=== PATIENT | male | born 1970 | race African-American/Black ===

== ENCOUNTER 2018-06-07 08:39 | Emergency (ER) | payer SELFPAY ==
--- NOTE | 2018-06-07 09:45 | CR ---
Chest: PA view of the chest was obtained. Comparison: No prior chest x-ray. Heart size and mediastinum are normal. Lungs are clear. Bony structures are grossly intact. Impression: 1. Nothing acute is seen on PA chest x-ray. Diagnostic code #1
--- NOTE | 2018-06-07 09:45 | CR ---
Left hand: Three views of the left hand were obtained. Joint spaces are maintained within the hand. No fracture, dislocation or other bony abnormality is seen. Impression: 1. No abnormality is seen on left hand exam. Diagnostic code #1
--- NOTE | 2018-06-07 09:47 | EDM.PDOC ---
ED HPI GENERAL MEDICAL PROBLEM - General Chief Complaint: Chest Pain Stated Complaint: CHEST PAIN Time Seen by Provider: 06/07/18 08:51 Source of Information: Reports: Patient History Limitations: Reports: No Limitations - History of Present Illness INITIAL COMMENTS - FREE TEXT/NARRATIVE: The patient is a 48-year-old male with no past medical history who comes in for episodes of chest pain and also difficulty moving his left thumb. Patient states that he's been getting intermittent chest pain over the past 2 weeks. There is no provoking factor. He gets about one episode daily. The pain is located in the center of his chest and it just lasts a few seconds and then resolves. It is not severe. Pain is dull. No radiation. He does not have any associated shortness of breath or nausea. Pain is not provoked by exertion. It is not provoked by food. No lower extremity pain or swelling. No cough, fever, or recent illness. Additionally, patient notes that he is having trouble flexing his left thumb. He does not recall an injury. This has been going on for a month. He has not previously sought medical attention. He also has pain at the base of the thumb. Chest Pain Score (Numeric/FACES): 6 - Related Data Allergies Allergy/AdvReac Type Severity Reaction Status Date / Time No Known Allergies Allergy Verified 06/07/18 08:47 Home Meds: Home Meds . [No Known Home Meds] 06/07/18 [History] Past Medical History - Past Health History Medical/Surgical History: Denies Medical/Surgical History Respiratory History: Reports: PE Social & Family History - Tobacco Use Smoking Status *Q: Never Smoker Second Hand Smoke Exposure: No - Caffeine Use Caffeine Use: Reports: Soda - Recreational Drug Use Recreational Drug Use: No ED ROS GENERAL - Review of Systems Review Of Systems: See Below Constitutional: Denies: Fever HEENT: Reports: No Symptoms Respiratory: Reports: No Symptoms Cardiovascular: Reports: Chest Pain Endocrine: Reports: No Symptoms GI/Abdominal: Reports: No Symptoms : Reports: No Symptoms Musculoskeletal: Reports: Hand Pain Skin: Reports: No Symptoms Neurological: Denies: Paresthesia Psychiatric: Reports: No Symptoms Hematologic/Lymphatic: Reports: No Symptoms Immunologic: Reports: No Symptoms ED EXAM, GENERAL - Physical Exam Exam: See Below Exam Limited By: No Limitations General Appearance: Alert, WD/WN, No Apparent Distress Eye Exam: Bilateral Eye: Normal Inspection Ears: Normal External Exam Nose: Normal Inspection Throat/Mouth: Normal Inspection, Normal Oropharynx, Normal Voice Head: Atraumatic, Normocephalic Neck: Normal Inspection, Supple, Non-Tender, Full Range of Motion Respiratory/Chest: No Respiratory Distress, Lungs Clear, Normal Breath Sounds, No Accessory Muscle Use, Chest Non-Tender Cardiovascular: Normal Peripheral Pulses, Regular Rate, Rhythm, No Edema, No Murmur Peripheral Pulses: 2+: Radial (R) GI/Abdominal: Normal Bowel Sounds, Soft, Non-Tender. No: Rebound Back Exam: Normal Inspection Extremities: Normal Inspection. No: No Pedal Edema, Leg Pain Neurological: Alert, Oriented, Normal Cognition, No Motor/Sensory Deficits Psychiatric: Normal Affect, Normal Mood Skin Exam: Warm, Dry, Intact, Normal Color, No Rash Course - Vital Signs Last Recorded V/S: Last Vital Signs Temp 36.2 C 06/07/18 08:47 Pulse 94 06/07/18 08:47 Resp 12 06/07/18 08:47 BP 145/94 H 06/07/18 08:47 Pulse Ox 100 06/07/18 08:47 - Orders/Labs/Meds Orders: Active Orders 24 hr Category Date Time Status EKG 12 Lead [EKG Documentation Completion] [RC] STAT Care 06/07/18 08:49 Active Chest 1V Frontal [CR] Stat Exams 06/07/18 09:02 Taken Hand Comp Min 3V Lt [CR] Stat Exams 06/07/18 09:03 Taken Labs: Laboratory Tests 06/07/18 06/07/18 Range/Units 08:50 08:50 WBC 4.43 (4.23-9.07) K/mm3 RBC 5.57 (4.63-6.08) M/mm3 Hgb 14.9 (13.7-17.5) gm/L Hct 45.8 (40.1-51.0) % MCV 82.2 (79.0-92.2) fl MCH 26.8 (25.7-32.2) pg MCHC 32.5 (32.2-35.5) g/dl RDW Std Deviation 40.4 (35.1-43.9) fL Plt Count 353 H (163-337) K/mm3 MPV 8.4 L (9.4-12.3) fl Neut % (Auto) 39.3 (34.0-67.9) % Lymph % (Auto) 47.4 (21.8-53.1) % [place] % (Auto) 8.8 (5.3-12.2) % Eos % (Auto) 3.8 (0.8-7.0) Baso % (Auto) 0.5 (0.1-1.2) % Neut # (Auto) 1.74 L (1.78-5.38) K/mm3 Lymph # (Auto) 2.10 (1.32-3.57) K/mm3 [place] # (Auto) 0.39 (0.30-0.82) K/mm3 Eos # (Auto) 0.17 (0.04-0.54) K/mm3 Baso # (Auto) 0.02 (0.01-0.08) K/mm3 Sodium 140 (136-145) mEq/L Potassium 4.3 (3.5-5.1) mEq/L Chloride 104 (98-107) mEq/L Carbon Dioxide 29 (21-32) mEq/L Anion Gap 11.3 (5-15) BUN 14 (7-18) mg/dL Creatinine 1.1 (0.7-1.3) mg/dL Est Cr Clr Drug Dosing 78.45 mL/min Estimated GFR (MDRD) > 60 (>60) mL/min BUN/Creatinine Ratio 12.7 L (14-18) Glucose 160 H (74-106) mg/dL Calcium 9.5 (8.5-10.1) mg/dL Magnesium 1.9 (1.8-2.4) mg/dl Total Bilirubin 0.3 (0.2-1.0) mg/dL AST 24 (15-37) U/L ALT 34 (16-63) U/L Alkaline Phosphatase 91 (46-116) U/L Troponin I < 0.017 (0.00-0.056) ng/mL Total Protein 7.8 (6.4-8.2) g/dl Albumin 3.9 (3.4-5.0) g/dl Globulin 3.9 gm/dL Albumin/Globulin Ratio 1.0 (1-2) - Re-Assessments/Exams Free Text/Narrative Re-Assessment/Exam: 06/07/18 09:44 EKG shows normal sinus rhythm, no significant ST or abnormality, less than half a millimeter of ST elevation in the inferior leads. No T-wave abnormality. Intervals normal. Labs including CBC, chemistry, troponin all normal except for very mild hyperglycemia. Chest x-ray shows no acute abnormality. X-ray of the left hand shows no acute osseous abnormality. He doesn't have a local primary care provider. We'll encourage him to establish with someone here. Also will encourage him to follow up with a hand software testing specialist for his thumb abnormality. He has flexion deficit of the thumb but doesn't recall an injury. Departure - Departure Time of Disposition: 09:47 Disposition: Home, Self-Care 01 Clinical Impression: Chest pain Qualifiers: Chest pain type: unspecified Qualified Code(s): R07.9 - Chest pain, unspecified Injury of left thumb Qualifiers: Encounter type: initial encounter Qualified Code(s): S69.92XA - Unspecified injury of left wrist, hand and finger(s), initial encounter Referrals: PCP,None [Primary Care Provider] - Additional Instructions: 1. Follow up with a primary care provider for further care. Your blood sugar was mildly high today (160) and should be rechecked. Call [phone] to schedule with a provider here. 2. Also follow up with a hand orthopedics specialist in [place] for your thumb flexion problem. Call [phone] to schedule with [facility]. 3. Return to the ED as needed for any new concerning symptoms, such as severe chest pain, difficulty breathing, or other concerning symptoms. - My Orders Last 24 Hours: My Active Orders 06/07/18 08:49 EKG 12 Lead [EKG Documentation Completion] [RC] STAT 06/07/18 09:02 Chest 1V Frontal [CR] Stat 06/07/18 09:03 Hand Comp Min 3V Lt [CR] Stat - Assessment/Plan Last 24 Hours: My Active Orders 06/07/18 08:49 EKG 12 Lead [EKG Documentation Completion] [RC] STAT 06/07/18 09:02 Chest 1V Frontal [CR] Stat 06/07/18 09:03 Hand Comp Min 3V Lt [CR] Stat
== END 2018-06-07 10:00 | disposition home or self-care (01) ==
LOC: JD.ED 08:39
DX: R07.9 Chest pain, unspecified (principal); S69.92XA Unspecified injury of left wrist, hand and finger(s), initial encounter; X58.XXXA Exposure to other specified factors, initial encounter
CPT/HCPCS: 36415; 71045; 71045-26; 73130-26-LT; 73130-LT; 80053; 83735; 84484; 85025; 93005; 93010; 99284-25; 99285-25

== ENCOUNTER 2018-07-03 10:02 | Emergency (ER) | payer SELFPAY ==
--- NOTE | 2018-07-03 10:54 | EDM.PDOC ---
ED HPI GENERAL MEDICAL PROBLEM - General Chief Complaint: Lower Extremity Injury/Pain Stated Complaint: LEFT LEG PAIN-HX OF BLOOD CLOTS Time Seen by Provider: 07/03/18 10:26 Source of Information: Reports: Patient History Limitations: Reports: No Limitations - History of Present Illness INITIAL COMMENTS - FREE TEXT/NARRATIVE: 48-year-old male with a history of left lower extremity DVT presenting with pain in the left calf. Patient was diagnosed with a DVT in his left leg on October of this year. He was cardioverted afterwards. He stuck currently anticoagulated. Patient drives about 2-1/2 hours to work. He notes that over the past month he's had intermittent pain in the left leg that is identical to the pain is had with his prior DVT. He has had no chest pain or shortness of breath. No swelling of the left leg eithe Patient has been extremely anxious and preoccupied with the possibility has a DVT.r. Left Lower Leg Pain Score (Numeric/FACES): 4 - Related Data Allergies Allergy/AdvReac Type Severity Reaction Status Date / Time No Known Allergies Allergy Verified 07/03/18 10:18 Home Meds: Home Meds . [No Known Home Meds] 06/07/18 [History] Past Medical History - Past Health History Medical/Surgical History: Denies Medical/Surgical History Respiratory History: Reports: PE Social & Family History - Tobacco Use Smoking Status *Q: Never Smoker - Caffeine Use Caffeine Use: Reports: Tea - Recreational Drug Use Recreational Drug Use: No Review of Systems - Review of Systems Review Of Systems: See Below Constitutional: Reports: No Symptoms Eyes: Reports: No Symptoms Respiratory: Reports: No Symptoms Cardiovascular: Reports: No Symptoms GI/Abdominal: Reports: No Symptoms Musculoskeletal: Reports: Leg Pain Skin: Reports: No Symptoms Neurological: Reports: No Symptoms Psychiatric: Reports: No Symptoms ED EXAM, GENERAL - Physical Exam Exam: See Below Exam Limited By: No Limitations General Appearance: Alert, No Apparent Distress Respiratory/Chest: No Respiratory Distress Cardiovascular: Normal Peripheral Pulses, Regular Rate, Rhythm Course - Vital Signs Last Recorded V/S: Last Vital Signs Temp 36.2 C 07/03/18 10:18 Pulse 85 07/03/18 10:18 Resp 14 07/03/18 10:18 BP 133/88 07/03/18 10:18 Pulse Ox 98 07/03/18 10:18 - Orders/Labs/Meds Orders: Active Orders 24 hr Category Date Time Status VL Duplex Lwr Ext Veins Ltd Lt [US] Stat Exams 07/03/18 11:34 Taken - Re-Assessments/Exams Free Text/Narrative Re-Assessment/Exam: 07/03/18 11:24 48-year-old male history of DVT in the left leg presenting with pain in left leg. On initial evaluation vital signs are normal physical exam in fact reveals no swelling or tenderness palpation of the left leg at all. However the patient' s been extremely preoccupied and this is his first day off these had untreatable seeking medical care about this ends today we will obtain an ultrasound of the left leg to rule out DVT. Departure - Departure Time of Disposition: 12:50 Disposition: Home, Self-Care 01 Condition: Good Clinical Impression: Leg pain Qualifiers: Laterality: left Qualified Code(s): M79.605 - Pain in left leg - Discharge Information *PRESCRIPTION DRUG MONITORING PROGRAM REVIEWED*: No *COPY OF PRESCRIPTION DRUG MONITORING REPORT IN PATIENT AUGUSTINE: No Instructions: Musculoskeletal Pain Referrals: PCP,None [Primary Care Provider] - Forms: ED Department Discharge Additional Instructions: You do not have a DVT in your left leg today. It is unclear what is causing your pain at this time. It is most likely a muscular sprain or strain. Follow up with a primary care provider as needed. - My Orders Last 24 Hours: My Active Orders 07/03/18 11:34 VL Duplex Lwr Ext Veins Ltd Lt [US] Stat - Assessment/Plan Last 24 Hours: My Active Orders 07/03/18 11:34 VL Duplex Lwr Ext Veins Ltd Lt [US] Stat
== END 2018-07-03 13:05 | disposition home or self-care (01) ==
LOC: JD.ED 10:02
DX: M79.662 Pain in left lower leg (principal); Z86.718 Personal history of other venous thrombosis and embolism
CPT/HCPCS: 93971-LT; 99283; 99284-25

== ENCOUNTER 2019-01-11 09:09 | Emergency (ER) | payer SELFPAY ==
--- NOTE | 2019-01-11 10:04 | EDM.PDOC ---
<Enoc Emerson - Last Filed: 01/11/19 10:41> ED HPI GENERAL MEDICAL PROBLEM - General Chief Complaint: Lower Extremity Injury/Pain Stated Complaint: PAIN IN BOTH LEG Time Seen by Provider: 01/11/19 09:17 Source of Information: Reports: Patient History Limitations: Reports: No Limitations - History of Present Illness INITIAL COMMENTS - FREE TEXT/NARRATIVE: Pt is a 49 year old non-smoker male with a h/o DVT x3 presents with bilateral leg pain that started 2 weeks ago. His pain is involves both calves but more severe on the right. He states that pain has steadily progressed the past two weeks and is currently is 8/10, dull, without radiation , and worse with stretching and compression of the either calf. He took a low- dose aspirin yesterday with mild relief. Pt also admits to having very mild substernal chest discomfort that has been intermittent for the past year that is not associated with exertion, dyspnea, or radiating pain. The chest discomfort is relieved with "rolling his shoulders". The pt does not attribute the pain as a "new". In the past he has had 3 episodes of DVTs since 2013 involving both legs legs as well as his right arm on one occasion. He works on the [employer] for which he states the majority of his work requires extensive travel and prolonged periods of sitting. He has also had recent travel to [place] in October which was "a long flight". In the past he states that he was hospitalized for DVT before and had treatment that did not involve surgery and then discharged with instructions to take low-dose aspirin if he was to encounter prolonged periods of sitting or travel. Pt states he does have h/o diabetes which is managed with diet and exercise. Pt denies history of pulmonary embolism, hematologic conditions, or recent illness. Pt denies fever, chills, chest pain, shortness of breath, cough, hemoptysis, abdominal pain, N/V/ D. He states that he does not have primary care provider at this time. Onset: Sudden Onset Date: 12/28/18 Duration: Week(s):, Getting Worse Location: Reports: Lower Extremity, Left, Lower Extremity, Right. Denies: Radiates to Quality: Reports: Ache, Dull Severity: Mild Improves with: Reports: Other (aspirin) Worsens with: Reports: Other (calf streatching or compression) Associated Symptoms: Reports: No Other Symptoms. Denies: Confusion, Chest Pain , Cough, cough w sputum, Diaphoresis, Fever/Chills, Headaches, Malaise, Nausea/ Vomiting, Shortness of Breath, Syncope Bilateral Lower Leg Pain Score (Numeric/FACES): 8 - Related Data Allergies Allergy/AdvReac Type Severity Reaction Status Date / Time No Known Allergies Allergy Verified 01/11/19 09:18 Home Meds: Home Meds Enoxaparin Sodium [Lovenox] 80 mg SQ DAILY #4 syringe 01/11/19 [Rx] Warfarin [Coumadin] 5 mg PO DAILY #30 tab 01/11/19 [Rx] Past Medical History - Past Health History Medical/Surgical History: Denies Medical/Surgical History Cardiovascular History: Reports: Other (See Below) Other Cardiovascular History: DVT Respiratory History: Reports: PE Endocrine/Metabolic History: Reports: Diabetes, Type II (or pre diabetes, controlled with diet and exercise) Social & Family History - Tobacco Use Smoking Status *Q: Never Smoker Second Hand Smoke Exposure: No - Caffeine Use Caffeine Use: Reports: None - Recreational Drug Use Recreational Drug Use: No Review of Systems - Review of Systems Review Of Systems: See Below Constitutional: Reports: No Symptoms. Denies: Chills, Fever Eyes: Reports: No Symptoms. Denies: Blurred Vision, Pain, Photophobia Ears: Reports: No Symptoms. Denies: Dizziness, Pain, Tinnitus Nose: Reports: No Symptoms. Denies: Congestion, Epistaxis, Pain Mouth/Throat: Reports: No Symptoms. Denies: Bleeding, Clots, Lip Swelling, Tongue Swelling, Throat Swelling, Difficulty Swallowing Respiratory: Reports: No Symptoms. Denies: Shortness of Breath, Wheezing, Pleuritic Chest Pain, Cough, Sputum, Hemoptysis Cardiovascular: Reports: No Symptoms. Denies: Chest Pain, Edema, Irregular Heart Rate, Lightheadedness, Palpitations, Syncope GI/Abdominal: Reports: No Symptoms. Denies: Abdominal Pain, Bloody Stool, Diarrhea, Hematemesis, Nausea, Vomiting Genitourinary: Reports: No Symptoms. Denies: Dysuria, Hematuria, Incontinence, Painful Urination Musculoskeletal: Reports: Leg Pain (see hpi). Denies: Joint Swelling, Muscle Pain, Muscle Stiffness Skin: Reports: No Symptoms. Denies: Cyanosis, Jaundice, Pallor, Dryness, Bruising, Rash, Wound, Lesions Neurological: Reports: No Symptoms. Denies: Confusion, Dizziness, Headache, Numbness, Paresthesia, Tingling, Weakness Psychiatric: Reports: No Symptoms. Denies: Depression, Anxiety, Homicidal Ideation ED EXAM, GENERAL - Physical Exam Exam: See Below Exam Limited By: No Limitations General Appearance: Alert, WD/WN, No Apparent Distress Eye Exam: Left Eye: EOMI, Normal Inspection, PERRL Ears: Normal External Exam, Normal Canal, Hearing Grossly Normal, Normal TMs Ear Exam: Bilateral Ear: Auricle Normal, Canal Normal, TM normal Nose: Normal Inspection, Normal Mucosa, No Blood Throat/Mouth: Normal Inspection, Normal Lips, Normal Teeth, Normal Gums, Normal Oropharynx, Normal Voice, No Airway Compromise Head: Atraumatic, Normocephalic Neck: Normal Inspection, Supple, Non-Tender, Full Range of Motion Respiratory/Chest: No Respiratory Distress, Lungs Clear, Normal Breath Sounds, No Accessory Muscle Use, Chest Non-Tender Cardiovascular: Normal Peripheral Pulses, Regular Rate, Rhythm, No Edema, No Gallop, No Murmur, No Rub Peripheral Pulses: 2+: Radial (L), Radial (R), Femoral (L), Femoral (R), Posterior Tibial (L), Posterior Tibial (R), Dorsalis Pedis (L), Dorsalis Pedis ( R) GI/Abdominal: Normal Bowel Sounds, Soft, Non-Tender, No Organomegaly, No Distention, No Abnormal Bruit, No Mass (Male) Exam: Deferred Rectal (Males) Exam: Deferred Back Exam: Normal Inspection, Full Range of Motion, NT Extremities: Normal Inspection, Normal Range of Motion, No Pedal Edema, Normal Capillary Refill, Smiley's Sign (left and right leg), Leg Pain (more in the right calf). No: Joint Swelling, Increased Warmth, Mottled, Pallor, Redness Neurological: Alert, Oriented, CN II-XII Intact, Normal Cognition, Normal Gait, Normal Reflexes, No Motor/Sensory Deficits Psychiatric: Normal Affect, Normal Mood Skin Exam: Warm, Dry, Intact, Normal Color, No Rash Lymphatic: No Adenopathy Course - Vital Signs Last Recorded V/S: Last Vital Signs Temp 97.7 F 01/11/19 09:15 Pulse 100 01/11/19 09:15 Resp 16 01/11/19 09:15 BP 139/85 01/11/19 09:15 Pulse Ox 99 01/11/19 09:15 - Orders/Labs/Meds Orders: Active Orders 24 hr Category Date Time Status Cardiac Monitoring [RC] . DIRECTED Care 01/11/19 09:41 Active Peripheral IV Care [RC] . DIRECTED Care 01/11/19 11:59 Active INR,PT,PROTHROMBIN TIME [COAG] Routine Lab 01/11/19 13:24 Ordered SEDIMENTATION RATE AUTO [HEME] Stat Lab 01/11/19 10:00 Received Sodium Chloride 0.9% [Normal Saline] 100 ml Med 01/11/19 12:15 Active IV ASDIRECTED Sodium Chloride 0.9% [Saline Flush] Med 01/11/19 11:59 Active 10 ml FLUSH ASDIRECTED PRN Peripheral IV Insertion Adult [OM.PC] Routine Oth 01/11/19 11:59 Ordered Medication Orders Sodium Chloride (Normal Saline) 100 mls @ 60 mls/hr IV ASDIRECTED MACI Last Admin: 01/11/19 12:22 Dose: 60 mls/hr Sodium Chloride (Saline Flush) 10 ml FLUSH ASDIRECTED PRN PRN Reason: Keep Vein Open Last Admin: 01/11/19 12:28 Dose: 10 ml Labs: Laboratory Tests 01/11/19 01/11/19 01/11/19 Range/Units 10:00 10:00 10:00 WBC 4.60 (4.23-9.07) K/mm3 RBC 5.63 (4.63-6.08) M/mm3 Hgb 15.1 (13.7-17.5) gm/L Hct 46.7 (40.1-51.0) % MCV 82.9 (79.0-92.2) fl MCH 26.8 (25.7-32.2) pg MCHC 32.3 (32.2-35.5) g/dl RDW Std Deviation 41.0 (35.1-43.9) fL Plt Count 325 (163-337) K/mm3 MPV 8.4 L (9.4-12.3) fl Neut % (Auto) 40.4 (34.0-67.9) % Lymph % (Auto) 48.7 (21.8-53.1) % [place] % (Auto) 7.4 (5.3-12.2) % Eos % (Auto) 2.8 (0.8-7.0) Baso % (Auto) 0.7 (0.1-1.2) % Neut # (Auto) 1.86 (1.78-5.38) K/mm3 Lymph # (Auto) 2.24 (1.32-3.57) K/mm3 [place] # (Auto) 0.34 (0.30-0.82) K/mm3 Eos # (Auto) 0.13 (0.04-0.54) K/mm3 Baso # (Auto) 0.03 (0.01-0.08) K/mm3 D-Dimer, Quantitative 1.09 H (0.19-0.50) mg/L Sodium 141 (136-145) mEq/L Potassium 4.4 (3.5-5.1) mEq/L Chloride 105 (98-107) mEq/L Carbon Dioxide 28 (21-32) mEq/L Anion Gap 12.4 (5-15) BUN 15 (7-18) mg/dL Creatinine 1.2 (0.7-1.3) mg/dL Est Cr Clr Drug Dosing 71.15 mL/min Estimated GFR (MDRD) > 60 (>60) mL/min BUN/Creatinine Ratio 12.5 L (14-18) Glucose 139 H (74-106) mg/dL Calcium 10.0 (8.5-10.1) mg/dL Magnesium 1.8 (1.8-2.4) mg/dl Total Bilirubin 0.3 (0.2-1.0) mg/dL AST 15 (15-37) U/L ALT 30 (16-63) U/L Alkaline Phosphatase 96 (46-116) U/L C-Reactive Protein (<1.0) mg/dL Total Protein 7.9 (6.4-8.2) g/dl Albumin 3.8 (3.4-5.0) g/dl Globulin 4.1 gm/dL Albumin/Globulin Ratio 0.9 L (1-2) 01/11/19 Range/Units 10:00 WBC (4.23-9.07) K/mm3 RBC (4.63-6.08) M/mm3 Hgb (13.7-17.5) gm/L Hct (40.1-51.0) % MCV (79.0-92.2) fl MCH (25.7-32.2) pg MCHC (32.2-35.5) g/dl RDW Std Deviation (35.1-43.9) fL Plt Count (163-337) K/mm3 MPV (9.4-12.3) fl Neut % (Auto) (34.0-67.9) % Lymph % (Auto) (21.8-53.1) % [place] % (Auto) (5.3-12.2) % Eos % (Auto) (0.8-7.0) Baso % (Auto) (0.1-1.2) % Neut # (Auto) (1.78-5.38) K/mm3 Lymph # (Auto) (1.32-3.57) K/mm3 [place] # (Auto) (0.30-0.82) K/mm3 Eos # (Auto) (0.04-0.54) K/mm3 Baso # (Auto) (0.01-0.08) K/mm3 D-Dimer, Quantitative (0.19-0.50) mg/L Sodium (136-145) mEq/L Potassium (3.5-5.1) mEq/L Chloride (98-107) mEq/L Carbon Dioxide (21-32) mEq/L Anion Gap (5-15) BUN (7-18) mg/dL Creatinine (0.7-1.3) mg/dL Est Cr Clr Drug Dosing mL/min Estimated GFR (MDRD) (>60) mL/min BUN/Creatinine Ratio (14-18) Glucose (74-106) mg/dL Calcium (8.5-10.1) mg/dL Magnesium (1.8-2.4) mg/dl Total Bilirubin (0.2-1.0) mg/dL AST (15-37) U/L ALT (16-63) U/L Alkaline Phosphatase (46-116) U/L C-Reactive Protein < 0.2 (<1.0) mg/dL Total Protein (6.4-8.2) g/dl Albumin (3.4-5.0) g/dl Globulin gm/dL Albumin/Globulin Ratio (1-2) Meds: Medications Generic Name Dose Route Start Last Admin Trade Name Gilmar PRN Reason Stop Dose Admin Sodium Chloride 100 mls @ 60 mls/hr 01/11/19 12:15 01/11/19 12:22 Normal Saline IV 60 mls/hr ASDIRECTED MACI Administration Sodium Chloride 10 ml 01/11/19 11:59 01/11/19 12:28 Saline Flush FLUSH 10 ml ASDIRECTED PRN Administration Keep Vein Open Discontinued Medications Generic Name Dose Route Start Last Admin Trade Name Gilmar PRN Reason Stop Dose Admin Enoxaparin Sodium 80 mg 01/11/19 13:24 Lovenox SUBCUT 01/11/19 13:25 ONETIME ONE Iopamidol 100 ml 01/11/19 12:01 01/11/19 12:21 Isovue-370 (76%) IV 01/11/19 12:02 100 ml ONETIME ONE Administration Sodium Chloride 10 ml 01/11/19 12:01 01/11/19 12:22 Saline Flush FLUSH 01/11/19 12:02 10 ml ONETIME ONE Administration Warfarin Sodium 5 mg 01/11/19 13:23 Coumadin PO 01/11/19 13:24 ONETIME ONE - Re-Assessments/Exams Free Text/Narrative Re-Assessment/Exam: 01/11/19 10:18 Pt presents with progressive bilateral lower leg pain more severe on the right for the past 2 weeks. He has a h/0 DVT x 3 and has had recent air travel to [facility] in October 2018 as well as prolonged travel and periods of sitting for his job. He denies any shortness of breath. His vial signs are wnl and stable. He does not appear to be in acute distress. Diagnostic studies include: CBC, CMP , Mg, D-Dimer, Venous US R and L leg. Plan discussed in coordination with Dr. George. 01/11/19 10:41 01/11/19 10:42 Departure - Departure Disposition: Home, Self-Care 01 Clinical Impression: Bilateral leg pain Pulmonary emboli Qualifiers: Pulmonary embolism type: unspecified Chronicity: acute Acute cor pulmonale presence: without acute cor pulmonale Qualified Code(s): I26.99 - Other pulmonary embolism without acute cor pulmonale - Discharge Information Prescriptions: Enoxaparin Sodium [Lovenox] 80 mg SQ DAILY #4 syringe Warfarin [Coumadin] 5 mg PO DAILY #30 tab Referrals: PCP,None [Primary Care Provider] - Salma Garcias MD [Physician] - 1 Week Forms: ED Department Discharge Additional Instructions: Take the coumadin daily. Take the lovenox shots daily starting tomorrow for 4 days. Follow up with Dr Garcias on Tuesday to have your blood checked. Please return if you have any problems. - My Orders Last 24 Hours: My Active Orders 01/11/19 09:41 Cardiac Monitoring [RC] . DIRECTED 01/11/19 10:00 SEDIMENTATION RATE AUTO [HEME] Stat 01/11/19 11:59 Peripheral IV Care [RC] . DIRECTED Sodium Chloride 0.9% [Saline Flush] 10 ml FLUSH ASDIRECTED PRN Peripheral IV Insertion Adult [OM.PC] Routine 01/11/19 12:15 Sodium Chloride 0.9% [Normal Saline] 100 ml IV ASDIRECTED 01/11/19 13:24 INR,PT,PROTHROMBIN TIME [COAG] Routine - Assessment/Plan Last 24 Hours: My Active Orders 01/11/19 09:41 Cardiac Monitoring [RC] . DIRECTED 01/11/19 10:00 SEDIMENTATION RATE AUTO [HEME] Stat 01/11/19 11:59 Peripheral IV Care [RC] . DIRECTED Sodium Chloride 0.9% [Saline Flush] 10 ml FLUSH ASDIRECTED PRN Peripheral IV Insertion Adult [OM.PC] Routine 01/11/19 12:15 Sodium Chloride 0.9% [Normal Saline] 100 ml IV ASDIRECTED 01/11/19 13:24 INR,PT,PROTHROMBIN TIME [COAG] Routine <Brain George - Last Filed: 01/11/19 13:35> Course - Re-Assessments/Exams Free Text/Narrative Re-Assessment/Exam: 01/11/19 13:27 I examined the patient myself and I agree with Rg's assessment and plan. His CBC and CMP look good. His D-dimer was elevated at 1.09. The US of both legs was negative for DVT. I then ordered a CT angio of his chest. The CT shows multiple small pulmonary emboli within subsegmental branches within both lower lungs and left upper lung. No acute parenchymal change is seen. We talked about options for anticoagulants and he is self pay so I feel coumadin will be a safe and cheeper option for him. I will give him a dose of coumadin here and lovenox. I will cover him with lovenox for the next 4 days. Departure - Departure Time of Disposition: 13:35 Condition: Good - Discharge Information *PRESCRIPTION DRUG MONITORING PROGRAM REVIEWED*: No *COPY OF PRESCRIPTION DRUG MONITORING REPORT IN PATIENT AUGUSTINE: No
--- NOTE | 2019-01-11 11:55 | US ---
Bilateral lower extremity deep venous ultrasound: Duplex and color flow imaging was obtained of the right and left common femoral, superficial femoral, proximal greater saphenous, popliteal, posterior tibial and peroneal veins. Findings: Normal phasic flow, augmentation and compression are seen. Impression: 1. No evidence of deep venous thrombosis within the right or left lower extremities. Diagnostic code #1
[2019-01-11] MEDS ORDERED: Sodium Chloride 0.9% 10 ML Syringe FLUSH PRN (11:59)
[2019-01-11] MEDS ORDERED: Sodium Chloride 0.9% 10 ML Syringe FLUSH ONE (12:01)
[2019-01-11] MEDS ORDERED: Iopamidol 755 Mg/ML 200 ML Bottle IV ONE (12:01)
[2019-01-11] MEDS ORDERED: Sodium Chloride 0.9% 100 ML IV SCH (12:15)
--- NOTE | 2019-01-11 13:21 | CT ---
CT chest Technique: Multiple axial sections through the chest were obtained. Intravenous contrast was utilized. Study has been performed as a pulmonary angiogram protocol. Findings: Filling defects are seen within the subsegmental branches of the right lower lung as well as minimal filling defects within some segmental branches within left lower lung. Small amount of clot is noted within a subsegmental branch of the left upper lung. Small portion of the visualized upper abdominal structures appear within normal limits. Lungs are clear with no acute parenchymal change. No pleural effusions are seen. Bone window settings were reviewed which appear within normal limits for the patient's age. Impression: 1. Multiple small pulmonary emboli within subsegmental branches within both lower lungs and left upper lung. 2. No acute parenchymal change is seen. Diagnostic code #5
[2019-01-11] MEDS ORDERED: Warfarin 5 MG Tab PO ONE (13:23)
[2019-01-11] MEDS ORDERED: Enoxaparin 80 MG/0.8 ML Syringe SUBCUT ONE (13:24)
== END 2019-01-11 13:54 | disposition home or self-care (01) ==
LOC: JD.ED 09:09
DX: I26.99 Other pulmonary embolism without acute cor pulmonale (principal); M79.605 Pain in left leg; M79.604 Pain in right leg; E11.9 Type 2 diabetes mellitus without complications; Z86.718 Personal history of other venous thrombosis and embolism; Z79.899 Other long term (current) drug therapy
CPT/HCPCS: 36415; 71275; 80053; 83735; 85025; 85379; 85610; 85652; 86140; 93970; 96372; 99284; A9270; J1650; J7030; Q9967

== ENCOUNTER 2019-01-20 07:50 | Emergency (ER) | payer SELFPAY ==
[2019-01-20] MEDS ORDERED: Acetaminophen 325 MG Tab PO ONE (08:10)
--- NOTE | 2019-01-20 08:22 | EDM.PDOC ---
ED HPI GENERAL MEDICAL PROBLEM - General Chief Complaint: Lower Extremity Injury/Pain Stated Complaint: POSSIBLE BLOOD CLOT IN RT LEG Time Seen by Provider: 01/20/19 08:01 Source of Information: Reports: Patient History Limitations: Reports: No Limitations - History of Present Illness INITIAL COMMENTS - FREE TEXT/NARRATIVE: The patient presents with right calf pain. I saw him 9 days ago and diagnosed him with bilateral PEs. He has a history of DVTs and he flew to [place] and he also does lots of sitting in his job. I did bilateral ultrasounds of his legs and there was no DVT. I did a CT angio of his chest and I found PEs. I put him on lovenox shots for 5 days and coumadin. He did not follow up with a primary care doctor Dr Garcias. He says the right leg pain started a couple days ago. He has no chest pain or shortness anymore. He says when he started taking the coumadin that went away. He did not injure his leg at all. He has no swelling in that leg. He has no fever, chills, cough, congestion, runny nose , abdominal pain, nausea or vomiting. Onset: Gradual Duration: Day(s): Location: Reports: Lower Extremity, Right (calf) Quality: Reports: Sharp Severity: Moderate Improves with: Reports: Immobilization Worsens with: Reports: Movement Associated Symptoms: Reports: No Other Symptoms Right Lower Leg Pain Score (Numeric/FACES): 8 - Related Data Allergies Allergy/AdvReac Type Severity Reaction Status Date / Time No Known Allergies Allergy Verified 01/11/19 09:18 Home Meds: Home Meds Warfarin [Coumadin] 5 mg PO DAILY #30 tab 01/11/19 [Rx] Enoxaparin Sodium [Lovenox] 80 mg SQ DAILY #5 dose 01/20/19 [Rx] Hydrocodone/Acetaminophen [Hydrocodon-Acetaminophen 5-325] 1 - 2 each PO Q6HR PRN #6 tablet 01/20/19 [Rx] Warfarin Sodium [Coumadin] 7.5 mg PO DAILY #30 tablet 01/20/19 [Rx] Past Medical History - Past Health History Medical/Surgical History: Denies Medical/Surgical History Cardiovascular History: Reports: Other (See Below) Other Cardiovascular History: DVT Respiratory History: Reports: PE Endocrine/Metabolic History: Reports: Diabetes, Type II (or pre diabetes, controlled with diet and exercise) Social & Family History - Caffeine Use Caffeine Use: Reports: None Review of Systems - Review of Systems Review Of Systems: See Below Constitutional: Reports: No Symptoms Eyes: Reports: No Symptoms Ears: Reports: No Symptoms Nose: Reports: No Symptoms Mouth/Throat: Reports: No Symptoms Respiratory: Reports: No Symptoms Cardiovascular: Reports: No Symptoms GI/Abdominal: Reports: No Symptoms Genitourinary: Reports: No Symptoms Musculoskeletal: Reports: Other (Right leg pain) ED EXAM, GENERAL - Physical Exam Exam: See Below Exam Limited By: No Limitations General Appearance: Alert, No Apparent Distress Ears: Normal External Exam Nose: Normal Inspection Head: Atraumatic, Normocephalic Neck: Normal Inspection Respiratory/Chest: No Respiratory Distress, Lungs Clear, Normal Breath Sounds Cardiovascular: Regular Rate, Rhythm, No Edema, No Murmur GI/Abdominal: Soft, Non-Tender, No Organomegaly, No Mass Back Exam: Normal Inspection Extremities: Other (Pain upon palpation to the right calf but no edema. Normal pulses distally and normal sensation.) Neurological: Alert, Oriented, No Motor/Sensory Deficits Course - Vital Signs Last Recorded V/S: Last Vital Signs Temp 98.7 F 01/20/19 07:59 Pulse 88 01/20/19 07:59 Resp 18 01/20/19 07:59 BP 126/88 01/20/19 07:59 Pulse Ox 99 01/20/19 07:59 - Orders/Labs/Meds Labs: Laboratory Tests 01/20/19 Range/Units 08:30 PT 14.0 H (9.5-12.1) SECONDS INR 1.29 Meds: Medications Discontinued Medications Generic Name Dose Route Start Last Admin Trade Name Gilmar PRN Reason Stop Dose Admin Acetaminophen 975 mg 01/20/19 08:10 01/20/19 08:33 Tylenol PO 01/20/19 08:11 975 mg NOW ONE Administration - Re-Assessments/Exams Free Text/Narrative Re-Assessment/Exam: 01/20/19 08:28 He has pain but no edema. I am not suspecting a DVT. The US 9 days ago was normal. I do not feel an US is needed and it will not change my plan of care. I have ordered an INR and I will give him some tylenol. 01/20/19 09:26 His INR is 1.29. I will need to get him on lovenox for 5 days again and I will up his coumadin to 7.5mg. I will have him follow up with Dr Garcias. Departure - Departure Time of Disposition: 09:30 Disposition: Home, Self-Care 01 Condition: Good Clinical Impression: Pulmonary emboli Qualifiers: Pulmonary embolism type: unspecified Chronicity: acute Acute cor pulmonale presence: without acute cor pulmonale Qualified Code(s): I26.99 - Other pulmonary embolism without acute cor pulmonale - Discharge Information *PRESCRIPTION DRUG MONITORING PROGRAM REVIEWED*: No *COPY OF PRESCRIPTION DRUG MONITORING REPORT IN PATIENT AUGUSTINE: No Prescriptions: Hydrocodone/Acetaminophen [Hydrocodon-Acetaminophen 5-325] 1 - 2 each PO Q6HR PRN #6 tablet PRN Reason: Pain Enoxaparin Sodium [Lovenox] 80 mg SQ DAILY #5 dose Warfarin Sodium [Coumadin] 7.5 mg PO DAILY #30 tablet Referrals: PCP,None [Primary Care Provider] - Salma Garcias MD [Physician] - 3 Days Forms: ED Department Discharge, ED Return to Work/School Form Additional Instructions: Take the coumadin 7.5mg daily. Do the lovenox shots daily for 5 days. Take tylenol or motrin for pain but it that does not work try the hydrocodone for pain. Follow up with Dr Garcias or one of her partners in 3 to 5 days. Please return if you are worse.
== END 2019-01-20 09:43 | disposition home or self-care (01) ==
LOC: JD.ED 07:50
DX: I26.99 Other pulmonary embolism without acute cor pulmonale (principal); E11.9 Type 2 diabetes mellitus without complications; Z79.01 Long term (current) use of anticoagulants
CPT/HCPCS: 36415; 85610; 99283; A9270

== ENCOUNTER 2019-07-14 07:25 | Emergency (ER) | payer SELFPAY ==
[2019-07-14 09:12] LABS: HEMOGLOBIN A1C 7.6 % (4.50-6.20)
--- NOTE | 2019-07-14 09:54 | EDM.PDOC ---
ED HPI GENERAL MEDICAL PROBLEM - General Chief Complaint: General Stated Complaint: FEVER?/NOT FEELING WELL Time Seen by Provider: 07/14/19 07:43 Source of Information: Reports: Patient History Limitations: Reports: No Limitations - History of Present Illness INITIAL COMMENTS - FREE TEXT/NARRATIVE: The patient presents because he is not feeling well. This has been going on for about 4 days. He has not been sleeping. He feels feverish. He has no energy. He is not sleeping well. He was diagnosed with a PE about a month ago and he is on coumadin. He has no shortness of breath. He has no cough, ear pain, sore throat or dysuria. He has no abdominal pain, nausea and vomiting. He does not have much of an appetite. He does have some chest pain at time. Onset: Gradual Duration: Day(s): (4) Severity: Mild Improves with: Reports: None Worsens with: Reports: None Associated Symptoms: Reports: Fever/Chills. Denies: Cough, Headaches, Nausea/ Vomiting, Shortness of Breath Right Head Pain Score (Numeric/FACES): 7 - Related Data Allergies Allergy/AdvReac Type Severity Reaction Status Date / Time No Known Allergies Allergy Verified 07/14/19 07:38 Home Meds: Home Meds Warfarin Sodium [Coumadin] 7.5 mg PO DAILY #30 tablet 01/20/19 [Rx] metFORMIN [Glucophage XR] 500 mg PO DAILY #30 tab.er 07/14/19 [Rx] Past Medical History - Past Health History Medical/Surgical History: Denies Medical/Surgical History Cardiovascular History: Reports: Other (See Below) Other Cardiovascular History: DVT Respiratory History: Reports: PE Endocrine/Metabolic History: Reports: Diabetes, Type II Social & Family History - Family History Family Medical History: Noncontributory - Tobacco Use Smoking Status *Q: Never Smoker Second Hand Smoke Exposure: No - Caffeine Use Caffeine Use: Reports: Coffee - Recreational Drug Use Recreational Drug Use: No ED ROS GENERAL - Review of Systems Review Of Systems: See Below Constitutional: Reports: Fever, Chills, Malaise, Weakness HEENT: Reports: No Symptoms Respiratory: Reports: No Symptoms Cardiovascular: Reports: No Symptoms Endocrine: Reports: No Symptoms GI/Abdominal: Reports: Decreased Appetite. Denies: Abdominal Pain, Nausea, Vomiting : Reports: No Symptoms Musculoskeletal: Reports: No Symptoms Skin: Reports: No Symptoms ED EXAM, GENERAL - Physical Exam Exam: See Below Exam Limited By: No Limitations General Appearance: Alert, No Apparent Distress Ears: Normal External Exam Nose: Normal Inspection Throat/Mouth: Normal Inspection Head: Atraumatic, Normocephalic Neck: Normal Inspection, Supple, Non-Tender Respiratory/Chest: No Respiratory Distress, Lungs Clear, Normal Breath Sounds Cardiovascular: Regular Rate, Rhythm, No Edema, No Murmur GI/Abdominal: Soft, Non-Tender, No Organomegaly, No Mass Back Exam: Normal Inspection Extremities: Normal Inspection EKG INTERPRETATION EKG Date: 07/14/19 Time: 08:26 Rhythm: NSR Rate (Beats/Min): 98 [place]: Normal P-Wave: Present QRS: Normal ST-T: Elevated (Mild anterior elevation normal early repol) QT: Normal Course - Vital Signs Last Recorded V/S: Last Vital Signs Temp 97.3 F 07/14/19 07:34 Pulse 107 H 07/14/19 07:34 Resp 16 07/14/19 07:34 BP 120/86 07/14/19 07:34 Pulse Ox 100 07/14/19 07:34 - Orders/Labs/Meds Orders: Active Orders 24 hr Category Date Time Status Cardiac Monitoring [RC] . DIRECTED Care 07/14/19 07:57 Active EKG Documentation Completion [RC] STAT Care 07/14/19 07:58 Active Chest 2V [CR] Stat Exams 07/14/19 07:58 Taken Labs: Laboratory Tests 07/14/19 07/14/19 07/14/19 Range/Units 08:08 08:08 08:08 WBC 3.93 L (4.23-9.07) K/mm3 RBC 5.99 (4.63-6.08) M/mm3 Hgb 15.8 (13.7-17.5) gm/L Hct 48.2 (40.1-51.0) % MCV 80.5 (79.0-92.2) fl MCH 26.4 (25.7-32.2) pg MCHC 32.8 (32.2-35.5) g/dl RDW Std Deviation 40.2 (35.1-43.9) fL Plt Count 334 (163-337) K/mm3 MPV 8.3 L (9.4-12.3) fl Neut % (Auto) 28.0 L (34.0-67.9) % Lymph % (Auto) 55.2 H (21.8-53.1) % Drew % (Auto) 12.5 H (5.3-12.2) % Eos % (Auto) 3.8 (0.8-7.0) Baso % (Auto) 0.5 (0.1-1.2) % Neut # (Auto) 1.10 L (1.78-5.38) K/mm3 Lymph # (Auto) 2.17 (1.32-3.57) K/mm3 Drew # (Auto) 0.49 (0.30-0.82) K/mm3 Eos # (Auto) 0.15 (0.04-0.54) K/mm3 Baso # (Auto) 0.02 (0.01-0.08) K/mm3 PT 28.6 H D (9.7-12.0) SECONDS INR 2.78 Sodium 140 (136-145) mEq/L Potassium 4.8 (3.5-5.1) mEq/L Chloride 102 (98-107) mEq/L Carbon Dioxide 27 (21-32) mEq/L Anion Gap 15.8 H (5-15) BUN 17 (7-18) mg/dL Creatinine 1.0 (0.7-1.3) mg/dL Est Cr Clr Drug Dosing 85.38 mL/min Estimated GFR (MDRD) > 60 (>60) mL/min BUN/Creatinine Ratio 17.0 (14-18) Glucose 235 H (74-106) mg/dL Hemoglobin A1c (4.50-6.20) % Calcium 9.5 (8.5-10.1) mg/dL Total Bilirubin 0.3 (0.2-1.0) mg/dL AST 20 (15-37) U/L ALT 36 (16-63) U/L Alkaline Phosphatase 109 (46-116) U/L Troponin I < 0.017 (0.00-0.056) ng/mL Total Protein 8.1 (6.4-8.2) g/dl Albumin 3.8 (3.4-5.0) g/dl Globulin 4.3 gm/dL Albumin/Globulin Ratio 0.9 L (1-2) 07/14/19 Range/Units 08:08 WBC (4.23-9.07) K/mm3 RBC (4.63-6.08) M/mm3 Hgb (13.7-17.5) gm/L Hct (40.1-51.0) % MCV (79.0-92.2) fl MCH (25.7-32.2) pg MCHC (32.2-35.5) g/dl RDW Std Deviation (35.1-43.9) fL Plt Count (163-337) K/mm3 MPV (9.4-12.3) fl Neut % (Auto) (34.0-67.9) % Lymph % (Auto) (21.8-53.1) % Drew % (Auto) (5.3-12.2) % Eos % (Auto) (0.8-7.0) Baso % (Auto) (0.1-1.2) % Neut # (Auto) (1.78-5.38) K/mm3 Lymph # (Auto) (1.32-3.57) K/mm3 Drew # (Auto) (0.30-0.82) K/mm3 Eos # (Auto) (0.04-0.54) K/mm3 Baso # (Auto) (0.01-0.08) K/mm3 PT (9.7-12.0) SECONDS INR Sodium (136-145) mEq/L Potassium (3.5-5.1) mEq/L Chloride (98-107) mEq/L Carbon Dioxide (21-32) mEq/L Anion Gap (5-15) BUN (7-18) mg/dL Creatinine (0.7-1.3) mg/dL Est Cr Clr Drug Dosing mL/min Estimated GFR (MDRD) (>60) mL/min BUN/Creatinine Ratio (14-18) Glucose (74-106) mg/dL Hemoglobin A1c 7.60 H (4.50-6.20) % Calcium (8.5-10.1) mg/dL Total Bilirubin (0.2-1.0) mg/dL AST (15-37) U/L ALT (16-63) U/L Alkaline Phosphatase (46-116) U/L Troponin I (0.00-0.056) ng/mL Total Protein (6.4-8.2) g/dl Albumin (3.4-5.0) g/dl Globulin gm/dL Albumin/Globulin Ratio (1-2) - Re-Assessments/Exams Free Text/Narrative Re-Assessment/Exam: 07/14/19 10:00 I ordered an EKG, CXR and labs. His EKG shows normal early repol. His WBC was a little low at 3.93. His INR was therapeutic at 2.78. His glucose was elevated at 235. I did a hemoglobin A1C and it was elevated at 7.6. His troponin was normal. He says in the past his blood sugar was elevated. I will start him on some metformin. Departure - Departure Time of Disposition: 10:05 Disposition: Home, Self-Care 01 Condition: Good Clinical Impression: Hyperglycemia due to type 2 diabetes mellitus Qualifiers: Diabetes mellitus buttermaker continuous churn insulin use: without assisted use Qualified Code(s ): E11.65 - Type 2 diabetes mellitus with hyperglycemia - Discharge Information *PRESCRIPTION DRUG MONITORING PROGRAM REVIEWED*: No *COPY OF PRESCRIPTION DRUG MONITORING REPORT IN PATIENT AUGUSTINE: No Prescriptions: metFORMIN [Glucophage XR] 500 mg PO DAILY #30 tab.er Referrals: PCP,None [Primary Care Provider] - Salma Garcias MD [Physician] - 1 Week Forms: ED Department Discharge Additional Instructions: Take your medication as prescribed. Take metformin daily. Try to alter your diet. Eat less simple sugars and refined carbohydrates. Eat more meat, vegetables and fruit. Follow up with Dr Garcias and please return if you are worse. - My Orders Last 24 Hours: My Active Orders 07/14/19 07:57 Cardiac Monitoring [RC] . DIRECTED 07/14/19 07:58 EKG Documentation Completion [RC] STAT Chest 2V [CR] Stat - Assessment/Plan Last 24 Hours: My Active Orders 07/14/19 07:57 Cardiac Monitoring [RC] . DIRECTED 07/14/19 07:58 EKG Documentation Completion [RC] STAT Chest 2V [CR] Stat
--- NOTE | 2019-07-17 09:43 | CR ---
Chest: Two views of the chest were obtained. Comparison: Prior chest x-ray of 06/07/[address] chest of 01/11/19. Findings: Heart size and mediastinum are within normal limits. Lungs are clear. Bony structures are unremarkable. Impression: 1. Nothing acute is appreciated on two-view chest x-ray. Diagnostic code #1
== END 2019-07-14 10:16 | disposition home or self-care (01) ==
LOC: JD.ED 07:25
DX: E11.65 Type 2 diabetes mellitus with hyperglycemia (principal); Z79.84 Long term (current) use of oral hypoglycemic drugs; Z79.01 Long term (current) use of anticoagulants
CPT/HCPCS: 36415; 71046; 80053; 83036; 84484; 85025; 85610; 93005; 99284-25